=== PATIENT | female | born 1995 | race Caucasian/White ===

== ENCOUNTER 2019-01-05 19:58 | Emergency (ER) | payer OTHER ==
[2019-01-05 20:13] VITALS: PULSE 65; BMI 24.7
--- NOTE | 2019-01-05 20:34 | PDOC ---
History of Present Illness - General Chief Complaint: Chest Pain Stated Complaint: CHEST PAIN Time Seen by Provider: 01/05/19 20:32 - History of Present Illness Initial Comments: 01/05/19 21:08 The patient is a 23 year old female with a history of DVT who presents for evaluation of left shoulder pressure and chest pressure. The patient reports that she had a prior "blood clot" in her "right shoulder" 5 years ago for which she was on blood thinners for 1 year. She notes that over the past 3 weeks, she has been experiencing left shoulder pressure with radiation to her left chest and left chest pressure with associated palpitations. She notes that the left shoulder pressure feels similar to when she had the "blood clot" in her right shoulder prompting her presentation to the ED for further evaluation. She state the episodes of pressure and palpitations have become increasingly more frequent as well. She also notes some associated pressure and pain to her legs bilaterally. She otherwise denies fevers, chills, SOB, nausea, vomiting, abdominal pain, OCP use, or changes with urination or bowel movements. Past History - Past Medical History Allergies/Adverse Reactions: Allergies Allergy/AdvReac Type Severity Reaction Status Date / Time No Known Allergies Allergy Verified 01/05/19 21:04 Home Medications: Ambulatory Orders NK [No Known Home Medication] 01/05/19 COPD: No Other medical history: Blood clot - Suicide/Smoking/Psychosocial Hx Smoking History: Never smoked Have you smoked in the past 12 months: No Information on smoking cessation initiated: No Hx Alcohol Use: No Drug/Substance Use Hx: No Review of Systems - Review of Systems Comments:: 01/05/19 21:13 Constitutional: No fevers, chills, fatigue, malaise HEENT: No Rhinorrhea, nasal congestion, visual changes Cardiovascular: Chest pressure. No syncope, palpitations, lightheadedness Respiratory: No Cough, SOB, Hemoptysis, Gastrointestinal: No Abdominal pain, Nausea, Vomiting, Constipation, Diarrhea, Melena Genitourinary: No Dysuria, Frequency, Urgency, Hesitancy, Hematuria, Flank pain Musculoskeletal: Left shoulder pressure. Bilateral leg pressure and pain. No Myalgia, arthralgia Skin: No rashes, itching, bruising, pallor Neurologic: No Headache, Dizziness, Numbness, Weakness, or Tingling Psychiatric: No Hallucinations. No SI or HI *Physical Exam - Vital Signs Last Vital Signs Temp Pulse Resp BP Pulse Ox 98.0 F 65 16 138/75 100 01/05/19 20:11 01/05/19 20:11 01/05/19 20:11 01/05/19 20:11 01/05/19 20:11 - Physical Exam Comments: 01/05/19 21:14 General Appearance: Nourished. No Apparent Distress HEENT: No Pharyngeal Erythema, Tonsillar Exudate, Tonsillar Erythema Neck: No Cervical Lymphadenopathy Respiratory/Chest: Lungs Clear, Normal Breath Sounds. No Crackles, Rales, Rhonchi, Wheezing Cardiovascular: Regular Rhythm, Regular Rate. No Murmur, Gallops, Rubs Gastrointestinal/Abdominal: Normal Bowel Sounds, Soft. No Guarding, Rebound, Tenderness Musculoskeletal: No CVA Tenderness Extremity: Normal Capillary Refill Integumentary: Normal Color, Dry, Warm Neurologic: Fully Oriented, Alert, Normal Mood/Affect, Normal Response, Heart Score/ECG Review #1 ECG reviewed & interpreted by me at: 21:14 General ECG Interpretation: Sinus Rhythm, Normal Rate, Normal Intervals, No acute ischemic changes Compared to previous ECG there are: Previous ECG unavail 01/05/19 21:14 Normal Sinus Rhythm HR 66 QRS 92 QTc 398 ED Treatment Course - LABORATORY CBC & Chemistry Diagram: 01/05/19 22:15 01/05/19 22:15 Medical Decision Making - Medical Decision Making 01/05/19 21:15 The patient is a 23 year old female with a history of DVT who presents for evaluation of left shoulder pressure and chest pressure. Given the patient's history and physical exam, we will obtain a cbc, cmp, troponin, ekg, tsh, Left arm and bilateral Leg US to evaluate further. The patient appears clinically well on exam and is currently asymptomatic. We will continue to monitor and reassess while here in the ED. 01/06/19 00:18 CBC, cmp, troponin, tsh are unremarkable. US are negative for DVT as preliminarily read by our lifestyle consultant radiologist. The patient was reassessed and continues to remain asymptomatic. We are comfortable discharging the patient home in stable condition. Patient and family made aware of impression and plan, return precautions discussed including but not limited to worsening pain or symptoms, fevers, or signs of infection, chest pain, respiratory distress, inability to tolerate oral intake, dehydration, syncope, or neurologic changes. The patient is to follow up with PMD as recommended within 1 week, follow up information provided and the patient will call for an appointment. The patient is to take medications as instructed for duration of time and continue with supportive care, avoid triggers and precipitants. Patient is safe for outpatient follow-up. *DC/Admit/Observation/Transfer Diagnosis at time of Disposition: Chest pressure - Discharge Dispostion Disposition: HOME Condition at time of disposition: Stable Decision to Admit order: No - Referrals - Patient Instructions Printed Discharge Instructions: DI for Atypical Chest Pain Additional Instructions: 1) Please follow-up with your primary care doctor in the next 2-3 days. Please call tomorrow to schedule a follow up appointment. If you cannot follow up with your doctor within 1 week please return to the Emergency Department for any urgent issues. 2) Your laboratory / imaging results were normal here in the ER. 3) If you have any worsening of symptoms or any other concerns please return to the ER immediately. Return if worsening symptoms including fevers, headache, vomiting, visual or hearing disturbances, abdominal pain, chest pain, shortness of breath, syncope, dehydration, inability to take things by mouth/vomiting, altered mental status, or worsening concerning symptoms. 4) Please continue taking your home medications as directed. - Post Discharge Activity
--- NOTE | 2019-01-05 20:51 | PDOC ---
Attending Attestation - Resident Resident Name: MalathiJerry - ED Attending Attestation I have performed the following: I have examined & evaluated the patient, The case was reviewed & discussed with the resident, I agree w/resident's findings & plan, Exceptions are as noted - HPI HPI: 01/05/19 21:15 23y F hx of RUE DVT (fomerly on eliquis, but now off) presents with intemrittent L shoulder pressure for several weaks that occasionally radiates to the L chest without associated sob, rodrigues, cough, hemoptysis, leg swelling, claf pain. no associated numbness/tingling/weakness or color changes. pt notes her prior dvt was also intermittent but accompanied by numbness/tingling and sometimes would turn blue. no worsening of the pain with movement of her arms or with exertion. - Physicial Exam PE: exam: general: well apeparing, NAD pulm: cta b/l Chest: rrr, no mrg abd soft nontender ext: no rashes, normal ROM of b/l shoulders, radial pulse symmetric b/l sensation - Medical Decision Making 01/05/19 21:35 ddx - low suspicoun for vascular event such as dvt will obtain duplex of LUE screening ekg 01/06/19 00:33 Ultrasounds were negative, the patient's lab work was unremarkable patient is feeling better will discharge patient with supportive care and PMD follow-up Return precautions were discussed Heart Score/ECG Review - ECG Impressions Comment:: 01/05/19 21:36 Twelve-lead EKG was performed and reviewed by me. There is normal sinus rhythm with a normal rate. rate of 66 The axis is normal. The intervals are normal. There is normal R wave progression There are no ST or T wave abnormalities. Impression: Normal twelve-lead EKG
[2019-01-05 22:28] LABS: BASO % 0.8 % (0-2.0); EOS % 4.5 % (0-4.5); HEMATOCRIT 44.6 % (32.4-45.2); LYMPH % 28.6 % (8-40); MCH 29.4 pg (25.7-33.7); MCHC 33.6 g/dl (32.0-36.0); MEAN CELL VOLUME 87.4 fl (80-96); MEAN PLT VOLUME 9.5 fl (7.5-11.1); MONO % 5.2 % (3.8-10.2); NEUT % 60.9 % (42.8-82.8); PLATELET COUNT 227 K/MM3 (134-434); RDW 13.7 % (11.6-15.6); WHITE BLOOD COUNT 10.8 K/mm3 (4.0-10.0)
[2019-01-05 23:06] LABS: ALBUMIN 4.3 g/dl (3.4-5.0); ALK PHOS 71 U/L (45-117); ANION GAP 8 MMOL/L (8-16); BILIRUBIN,TOTAL 0.7 mg/dL (0.2-1); BLOOD UREA NITROGEN 15 mg/dL (7-18); CALCIUM 9.4 mg/dL (8.5-10.1); CHLORIDE 106 mmol/L (98-107); CO2 24 mmol/L (21-32); CREATININE 0.6 mg/dL (0.55-1.3); GLUCOSE,RANDOM 74 mg/dL (74-106); POTASSIUM 3.7 mmol/L (3.5-5.1); SGOT/AST 15 U/L (15-37); SGPT/ALT 25 U/L (13-61); SODIUM 138 mmol/L (136-145); TOT PROT 7.8 g/dl (6.4-8.2)
[2019-01-06 00:38] VITALS: BP 112/51; TEMP 98.8
--- NOTE | 2019-01-07 10:59 | EKG ---
Test Reason : Blood Pressure : / mmHG Vent. Rate : 066 BPM Atrial Rate : 066 BPM P-R Int : 132 ms QRS Dur : 092 ms QT Int : 380 ms P-R-T Axes : 005 077 043 degrees QTc Int : 398 ms NORMAL SINUS RHYTHM WITH SINUS ARRHYTHMIA NORMAL ECG NO PREVIOUS ECGS AVAILABLE Confirmed by MD Candi, Zev ([id number]) on 01/07/2019 10:59:16 AM Referred By: Confirmed By:Zev Christopher MD
== END 2019-01-06 00:38 | disposition home or self-care (01) ==
LOC: JER 19:58
DX: R07.89 Other chest pain (principal); Z86.718 Personal history of other venous thrombosis and embolism
CPT/HCPCS: 36415; 80053; 82550; 84443; 84484; 84703; 85025; 93005; 93010; 93970-TC; 93971; 99282-25